=== PATIENT | female | born 1975 | race Caucasian/White ===

== ENCOUNTER 2022-08-23 13:56 | Emergency (ER) | payer MEDICARE, OTHER ==
[~2022-08-23] VITALS: Ht 167.6 cm; Wt 107.0 kg
[2022-08-23 14:40] LABS: BASOPHILS PERCENT AUTO 1 % (0-2); EOSINOPHILS ABSOLUTE AUTO 0.11 K/mm3 (0.00-0.68); EOSINOPHILS PERCENT AUTO 1 % (0-6); Hematocrit 47.2 % (33.0-51.0); Hemoglobin 15.6 g/dL (11.5-16.0); IMMATURE GRAN ABSOLUTE AUTO 0.08 K/mm3 (0.00-0.10); IMMATURE GRAN PERCENT AUTO 1 % (0-1); LYMPHOCYTES ABSOLUTE AUTO 2.62 K/mm3 (0.84-5.20); LYMPHOCYTES PERCENT AUTO 18 % (21-46); MONOCYTES ABSOLUTE AUTO 0.83 K/mm3 (0.16-1.47); MONOCYTES PERCENT AUTO 6 % (4-13); Mean Corpuscular HGB 30.4 pg (26.0-34.0); Mean Corpuscular HGB Conc 33.1 g/dL (31.5-36.5); Mean Corpuscular Volume 92 fL (80-100); NEUTROPHILS ABSOLUTE AUTO 10.94 K/mm3 (1.96-9.15); NEUTROPHILS PERCENT AUTO 75 % (41-73); Platelet Count 400 K/mm3 (150-400); RDW Coefficient Variation 13.2 % (11.7-14.2); RDW Standard Deviation 44.8 fL (35.1-46.3); Red Blood Cell Count 5.14 M/mm3 (3.80-5.20); White Blood Cell Count 14.68 K/mm3 (4.00-11.30)
[2022-08-23 15:01] LABS: Albumin/Globulin Ratio 1.2 (0.8-1.8); Bilirubin, Total 0.8 mg/dL (0.1-1.0); Bun/Creatinine Ratio 8.9 (12.0-20.0); Calcium, Blood 9.6 mg/dL (8.5-10.1); Creatinine, Blood 0.67 mg/dL (0.40-1.00); Globulin, Blood 3.2 g/dL (2.2-4.0); Potassium, Blood 3.3 mmol/L (3.5-5.5); Total Protein, Blood 7.2 g/dL (6.4-8.2)
== END 2022-08-23 19:44 | disposition home or self-care (01) ==
LOC: ER 13:56
PROVIDERS: Emergency Medicine
DX: G43.909 Migraine, unspecified, not intractable, without status migrainosus (principal); Z88.2 Allergy status to sulfonamides; Z91.048 Other nonmedicinal substance allergy status; Z88.0 Allergy status to penicillin; Z91.041 Radiographic dye allergy status
CPT/HCPCS: 36415; 80053; 85025; 96374; 96375; 99284-25; A9270; J0780; J1100; J1885; J2405; J3475

== ENCOUNTER 2022-12-25 00:22 | Day surgery (SDC) | payer MEDICARE, OTHER ==
[~2022-12-25 00:22] MED LIST: FLUO10 PO; HYDCOR2.5C PR; INDERAL XL120 M1 PO; MELO7.5 PO; PREG100 PO; Triamcinolone A15 GM TOP
== END 2022-12-25 14:58 | disposition home or self-care (01) ==
LOC: ATC 00:22
DX: L40.0 Psoriasis vulgaris (principal)
CPT/HCPCS: J3245

== ENCOUNTER → 2023-01-10 | Outpatient (CLI) | payer MEDICARE, OTHER ==
[2023-01-10 19:46] LABS: BASOPHILS PERCENT AUTO 1 % (0-2); EOSINOPHILS ABSOLUTE AUTO 0.42 K/mm3 (0.00-0.68); EOSINOPHILS PERCENT AUTO 3 % (0-6); Hematocrit 43.7 % (33.0-51.0); Hemoglobin 14.3 g/dL (11.5-16.0); IMMATURE GRAN ABSOLUTE AUTO 0.09 K/mm3 (0.00-0.10); IMMATURE GRAN PERCENT AUTO 1 % (0-1); LYMPHOCYTES ABSOLUTE AUTO 3.11 K/mm3 (0.84-5.20); LYMPHOCYTES PERCENT AUTO 23 % (21-46); MONOCYTES ABSOLUTE AUTO 1.03 K/mm3 (0.16-1.47); MONOCYTES PERCENT AUTO 8 % (4-13); Mean Corpuscular HGB 31.6 pg (26.0-34.0); Mean Corpuscular HGB Conc 32.7 g/dL (31.5-36.5); Mean Corpuscular Volume 97 fL (80-100); Mean Platelet Volume 10.5 fL (9.1-12.4); NEUTROPHILS ABSOLUTE AUTO 8.55 K/mm3 (1.96-9.15); NEUTROPHILS PERCENT AUTO 64 % (41-73); Platelet Count 328 K/mm3 (150-400); RDW Coefficient Variation 14.6 % (11.7-14.2); RDW Standard Deviation 51.1 fL (35.1-46.3); Red Blood Cell Count 4.52 M/mm3 (3.80-5.20)
[2023-01-10 20:13] LABS: Alanine Aminotransfer (ALT/SGP 32 U/L (12-78); Albumin, Blood 3.7 g/dL (3.4-5.0); Albumin/Globulin Ratio 1.2 (0.8-1.8); Alk Phos 89 U/L (50-136); Anion Gap 3 mmol/L (6-16); Aspartate Aminotrans (AST/SGOT 20 U/L (12-37); Bilirubin, Total 0.4 mg/dL (0.1-1.0); Blood Urea Nitrogen 25 mg/dL (8-24); Bun/Creatinine Ratio 40.9 (12.0-20.0); CO2, Blood 27 mmol/L (21-32); Calcium, Blood 8.8 mg/dL (8.5-10.1); Chloride, Blood 110 mmol/L (98-108); Cholesterol 198 mg/dL (50-200); Creatinine, Blood 0.61 mg/dL (0.40-1.00); Globulin, Blood 3.2 g/dL (2.2-4.0); Glomerular Filtration Rate 111 (60-); Glucose, Blood 97 mg/dL (70-99); HDL Cholesterol 66 mg/dL (>39); LDL/HDL RATIO 1.2; Low Density Lipoprotein Chol 80 mg/dL (0-110); Sodium, Blood 140 mmol/L (136-145); Total Protein, Blood 6.9 g/dL (6.4-8.2); Triglycerides 262 mg/dL (30-160); Very Low Density Lipoprot Chol 52 mg/dL (6-32)
== END | disposition home or self-care (01) ==
LOC: LAB SHORT 18:41
PROVIDERS: Family Medicine
DX: F43.10 Post-traumatic stress disorder, unspecified (principal); E78.5 Hyperlipidemia, unspecified; R06.09 Other forms of dyspnea
CPT/HCPCS: 80053; 80061; 83880; 84443; 85025

== ENCOUNTER 2023-04-27 20:27 | Emergency (ER) | payer MEDICARE, OTHER ==
[~2023-04-27] VITALS: Ht 167.6 cm; Wt 99.8 kg
[2023-04-27 20:33] VITALS: BP 134/94
[2023-04-27] MEDS ORDERED: ALDACTONE100 MG PO (20:42)
[2023-04-27] MEDS ORDERED: ONDA4ODT MM (20:43)
== END 2023-04-27 21:00 | disposition home or self-care (01) ==
LOC: ER 20:27
DX: J02.9 Acute pharyngitis, unspecified (principal); Z88.8 Allergy status to other drugs, medicaments and biological substances; Z88.2 Allergy status to sulfonamides; Z91.09 Other allergy status, other than to drugs and biological substances; Z88.0 Allergy status to penicillin; Z79.899 Other long term (current) drug therapy; Z96.653 Presence of artificial knee joint, bilateral
CPT/HCPCS: 87430; J1100

== ENCOUNTER 2023-05-28 08:47 | Emergency (ER) | payer MEDICARE, OTHER ==
[~2023-05-28] VITALS: Ht 167.6 cm; Wt 101.2 kg
[~2023-05-28 08:47] MED LIST changes: +ALDACTONE100 MG PO; +ONDA4ODT MM
[2023-05-28] MEDS ORDERED: PRAZOSIN HCL1 M2 PO (09:00)
[2023-05-28] MEDS ORDERED: TIZANIDINE HCL213 PO (09:00)
[2023-05-28 09:30] VITALS: BP 123/107
== END 2023-05-28 09:39 | disposition home or self-care (01) ==
LOC: ER 08:47
DX: S90.122A Contusion of left lesser toe(s) without damage to nail, initial encounter (principal); F17.290 Nicotine dependence, other tobacco product, uncomplicated; Z88.8 Allergy status to other drugs, medicaments and biological substances; Z88.0 Allergy status to penicillin; Z91.041 Radiographic dye allergy status; Z88.2 Allergy status to sulfonamides; Z91.048 Other nonmedicinal substance allergy status; Z88.1 Allergy status to other antibiotic agents; W22.8XXA Striking against or struck by other objects, initial encounter
CPT/HCPCS: 73630; 96372; 99283-25; A9270; J1885

== ENCOUNTER 2023-07-08 10:15 | Emergency (ER) | payer MEDICARE, OTHER ==
[~2023-07-08] VITALS: Ht 167.6 cm; Wt 101.2 kg
[~2023-07-08 10:15] MED LIST changes: +PRAZOSIN HCL1 M2 PO; +TIZANIDINE HCL213 PO
[2023-07-08 10:27] VITALS: BP 146/98
[2023-07-08] MEDS ORDERED: MELO7.5 PO (10:31)
[2023-07-08] MEDS ORDERED: HYDR1TAB94 PO (13:09)
== END 2023-07-08 13:19 | disposition home or self-care (01) ==
LOC: ER 10:15
DX: M16.11 Unilateral primary osteoarthritis, right hip (principal); F17.290 Nicotine dependence, other tobacco product, uncomplicated; Z79.899 Other long term (current) drug therapy
CPT/HCPCS: 73502; 96372; 99283-25; A9270; J1885

== ENCOUNTER 2023-11-04 11:55 | Emergency (ER) | payer MEDICARE, OTHER ==
[~2023-11-04] VITALS: Ht 167.6 cm; Wt 96.2 kg
[~2023-11-04 11:55] MED LIST changes: +HYDR1TAB94 PO
[2023-11-04 12:39] VITALS: BP 144/114
[2023-11-04] MEDS ORDERED: MOXIFLOXACIN LEFTEYE (13:45)
[2023-11-04] MEDS ORDERED: ERYT1OIN LEFTEYE (17:03)
[2023-11-11] MEDS ORDERED: ONDA4 PO (14:00)
== END 2023-11-04 13:53 | disposition home or self-care (01) ==
LOC: ER 11:55
DX: S05.02XA Injury of conjunctiva and corneal abrasion without foreign body, left eye, initial encounter (principal); F17.290 Nicotine dependence, other tobacco product, uncomplicated; Z88.0 Allergy status to penicillin; Z88.1 Allergy status to other antibiotic agents; Z88.2 Allergy status to sulfonamides; Z88.8 Allergy status to other drugs, medicaments and biological substances; Z91.041 Radiographic dye allergy status; Z91.048 Other nonmedicinal substance allergy status; Z79.899 Other long term (current) drug therapy; X58.XXXA Exposure to other specified factors, initial encounter
CPT/HCPCS: 99283; A9270

== ENCOUNTER 2023-11-11 15:28 | Emergency (ER) | payer OTHER, MEDICARE ==
[~2023-11-11] VITALS: Ht 167.6 cm; Wt 96.2 kg
[~2023-11-11 15:28] MED LIST changes: +ERYT1OIN LEFTEYE; +MOXIFLOXACIN LEFTEYE; +ONDA4 PO
[2023-11-11 15:43] VITALS: BP 162/110
[2023-11-11] MEDS ORDERED: HYDROCODONE-AC1 EAC7 PO (16:08)
[2023-11-11] MEDS ORDERED: TOPI25 PO (16:08)
[2023-11-11] MEDS ORDERED: ALDACTONE100 MG PO (16:09)
[2023-11-11] MEDS ORDERED: MELO7.5 PO (16:09)
[2023-11-11] MEDS ORDERED: PROZAC2010 PO (16:10)
[2023-11-11] MEDS ORDERED: MOXIOPS LEFTEYE (16:35)
== END 2023-11-11 16:42 | disposition home or self-care (01) ==
LOC: ER 15:28
DX: S05.02XA Injury of conjunctiva and corneal abrasion without foreign body, left eye, initial encounter (principal); W54.8XXA Other contact with dog, initial encounter; G43.909 Migraine, unspecified, not intractable, without status migrainosus; F17.290 Nicotine dependence, other tobacco product, uncomplicated
CPT/HCPCS: 99282; A9270

== ENCOUNTER 2023-11-25 06:10 | Day surgery (SDC) | payer MEDICARE, OTHER ==
[2023-11-25] VITALS (11 sets, daily range): BP systolic 98–120; BP diastolic 58–86
[~2023-11-25] VITALS: Ht 167.6 cm; Wt 100.1 kg
[~2023-11-25 06:10] MED LIST changes: +HYDROCODONE-AC1 EAC7 PO; +MOXIOPS LEFTEYE; +PROZAC2010 PO; +TOPI25 PO
[2023-11-25] MEDS ORDERED: TIZANIDINE HCL213 PO (07:34)
[2023-11-25] MEDS ORDERED: Ventolin/Prove6.7 GM INH (07:35)
--- NOTE | 2023-11-25 07:36 | NUR ---
History, Chart, Medications and Allergies reviewed before start of procedure. Patient up to Ambulate independently with cane. Patient confirms NPO status and agrees with scheduled surgery. Pre-Op teaching done. Pt verbalizes understanding. Patient reports completing Chlorhexadine shower X2 prior to admission to hospital.Surgical site prepped with 2% Chlorhexidine cloth wipe. Lungs clear T/O to Auscultation. Patient States Post-Procedure ride home has been arranged.
--- NOTE | 2023-11-25 08:18 | NUR ---
11/25/23 0818 Cherie Harris SPINAL NERVE BLOCK COMPLETED BY DR. GLASS UPON ENTRY TO OR. PT EXPRESSED SOME FEELINGS OF DISCOMFORT BUT WAS ABLE TO TOLERATE THE SPINAL.
--- NOTE | 2023-11-25 15:01 | NUR ---
AT APROX 1430 RN WAS TOLD PT IS WISHING TO LEAVE AMA DUE TO THERAPY NOT BEING IN TO WORK WITH HER YET. PT STATES SHE DID NOT EXPECT TO BE HERE THIS LONG AFTER SURGERY AND APPEARS VERY AGGITATED. THIS RN DISCUSSED AT LENGTH THE PTS DISCHARGE CRITERIA INCLUDING CLEARING PT, PAIN MANAGED W/PO MEDICATION, VOIDING, AND TOLERATING PO WITH NO N/V. PT HAD REPORTED NAUSEA PREVIOUSLY, THIS RN BROUGHT REGLAN AND PT REFUSED SHE STATED IT WAS IMPROVED. PT STATES SHE HAS APROX 24 STAIRS TO HER APPARTMENT AND IS WONDERING HOW SHE WILL GET UP THOSE. AGAIN EDUCATED PT ON THERAPY WORKING WITH PT ON THESE SPECIFIC THINGS. ASKED PT IF SHE HAD ATTENDED THE ORTHO CLASS, SHE STATES SHE DID NOT HER SURGERY WAS SUPPOSED TO BE IN AUGUST BUT THEY CANCLED DUE TO HER CONTINUED VAPING. PT IN ROOM AT APROX 1500 TO WORK WITH PT.
[2023-11-25] MEDS ORDERED: ASPI81CH PO (15:48)
[2023-11-25] MEDS ORDERED: ONDA4 PO (15:50)
--- NOTE | 2023-11-25 16:58 | NUR ---
DISCHARGE PT DISCHARGED HOME FROM UNIT AT APROX 1630. PT GIVEN WRITTEN AND VERBAL DC INSTRUCTIONS AND VERBALIZED UNDERSTANDING OF THESE INSTRUCTIONS. PT DID ASK WHEN SHE WOULD BE ABLE TO HAVE SEX AGAIN, RN EDUCATED THAT SHE WOULD NEED TO BE CLEARED BY MD FOR SAFETY REASONS. IV REMOVED. WC TO CAR. PT WALKER WITH PT. WRITTEN RX'S GIVEN TO PT, COPY IN CHART.
== END 2023-11-25 16:38 | disposition home or self-care (01) ==
LOC: ORSCMMR 06:10 → ORD 07:30 → ORSCMMR 07:30 → SURS 10:11 → ORSCMMR 10:12 → SURS 16:38 → ORSCMMR 16:38
PROVIDERS: Orthopaedic Surgery
PROC: 0SR90JZ Replacement of Right Hip Joint with Synthetic Substitute, Open Approach (ICD-10-PCS; principal; 2023-11-25 07:30)
DX: M16.11 Unilateral primary osteoarthritis, right hip (principal); J45.909 Unspecified asthma, uncomplicated; E11.9 Type 2 diabetes mellitus without complications; Z87.891 Personal history of nicotine dependence; Z86.16 Personal history of COVID-19; Z79.899 Other long term (current) drug therapy
CPT/HCPCS: 72170; 97110; 97116; 97162; A9270; C1776; J0171; J0690; J0735; J1100; J1885; J2250; J2405; J2704; J2795; J3010; J7120

== ENCOUNTER 2023-12-14 07:06 | Emergency (ER) | payer MEDICARE, OTHER ==
[~2023-12-14] VITALS: Ht 167.6 cm; Wt 99.8 kg
[~2023-12-14 07:06] MED LIST changes: +ASPI81CH PO; +Ventolin/Prove6.7 GM INH
[2023-12-14] MEDS ORDERED: OXYCODONE-ACET1 EAC3 PO (08:01)
[2023-12-14] MEDS ORDERED: PREGABALIN100 MG PO (08:01)
[2023-12-14 08:45] VITALS: BP 112/82
== END 2023-12-14 09:31 | disposition home or self-care (01) ==
LOC: ER 07:06
DX: M96.840 Postprocedural hematoma of a musculoskeletal structure following a musculoskeletal system procedure (principal); Z96.641 Presence of right artificial hip joint; Z96.653 Presence of artificial knee joint, bilateral; G43.909 Migraine, unspecified, not intractable, without status migrainosus; Z79.82 Long term (current) use of aspirin; Z79.1 Long term (current) use of non-steroidal anti-inflammatories (NSAID); Z79.899 Other long term (current) drug therapy; Z88.0 Allergy status to penicillin; Z88.2 Allergy status to sulfonamides; Z88.1 Allergy status to other antibiotic agents; Z88.8 Allergy status to other drugs, medicaments and biological substances; Z91.041 Radiographic dye allergy status
CPT/HCPCS: 12001; 99283-25

== ENCOUNTER 2023-12-17 | Inpatient (IN) | payer MEDICARE, OTHER ==
[~2023-12-17] VITALS: Ht 167.6 cm; Wt 102.0 kg
[~2023-12-17] MED LIST changes: +OXYCODONE-ACET1 EAC3 PO; +PREGABALIN100 MG PO
[2023-12-18] VITALS (15 sets, daily range): BP systolic 80–142; BP diastolic 64–97
[2023-12-18] MEDS ORDERED: OxyCODONE 5 mg/Acetamin 325 mg TABLET PO PRN (01:10)
[2023-12-18] MEDS ORDERED: Lactated Ringer's 1,000 ML IV SCH ×3 (01:10→12:45)
--- NOTE | 2023-12-18 04:46 | NUR ---
Admit Note/Shift Summary Elvia Kovacs was a direct admit to room 305. She prefers to be called Kalyan. She was admitted due to a large hematoma on her right outer hip at the site of her hip surgery which was done on 11/25/23. Her dressing was saturated on arrival. Dressing was changed and remains dry and intact. She is alert and oriented. Respirations regular and unlabored. Lung sounds clear. She is NPO due to the possibility of surgery in the am. Kalyan uses a cane to ambulate and is able to get around okay in her room. I instructed her to call for assistance before getting up and waiting on someone to get there. She verbalized understanding. She has an IV in her left hand with Lactated Ringers infusing per pump at 100 ml/hr. Call light in reach. Bed in low postion.
--- NOTE | 2023-12-18 08:20 | NUR ---
RN NOTE SPOKE WITH RN IN DAY SURGERY. NEW LR TKO ORDER IS IN PLACE FOR OR ONLY, NOT TO CHANGE RATE OF CURRENT IVF PER DAY SURGERY RN.
[2023-12-18] MEDS ORDERED: Ondansetron 4 MG TAB PO PRN (08:25)
[2023-12-18] MEDS ORDERED: Albuterol HFA200 ACT/6.7 GM INH INH PRN (08:40)
[2023-12-18] MEDS ORDERED: Pregabalin 50 MG Capsule PO SCH ×2 (09:00)
[2023-12-18] MEDS ORDERED: CefTRIAXone Sodium 1,000 MG in NS 50 ML IV SCH (09:00)
[2023-12-18] MEDS ORDERED: TiZANidine HCl 4 MG Tab PO SCH (09:00)
[2023-12-18] MEDS ORDERED: FLUoxetine HCL 20 MG CAP PO SCH (09:00)
--- NOTE | 2023-12-18 12:13 | NUR ---
TO OPERATING ROOM AT 1215HRS
[2023-12-18] MEDS ORDERED: Albuterol 2.5 MG/3 ML VIAL INH SCH (13:05)
[2023-12-18] MEDS ORDERED: Albuterol 2.5 MG/3 ML VIAL ONE (13:06)
[2023-12-18] MEDS ORDERED: Tranexamic Acid 100 ML IV SCH (13:10)
[2023-12-18 13:33] LABS: BASOPHILS ABSOLUTE AUTO 0.12 K/mm3 (0.00-0.23); BASOPHILS PERCENT AUTO 1 % (0-2); EOSINOPHILS ABSOLUTE AUTO 0.36 K/mm3 (0.00-0.68); EOSINOPHILS PERCENT AUTO 2 % (0-6); Hematocrit 35.9 % (33.0-51.0); Hemoglobin 11.5 g/dL (11.5-16.0); IMMATURE GRAN PERCENT AUTO 1 % (0-1); LYMPHOCYTES ABSOLUTE AUTO 2.22 K/mm3 (0.84-5.20); LYMPHOCYTES PERCENT AUTO 12 % (21-46); MONOCYTES ABSOLUTE AUTO 1.55 K/mm3 (0.16-1.47); MONOCYTES PERCENT AUTO 9 % (4-13); Mean Corpuscular HGB 32.7 pg (26.0-34.0); Mean Corpuscular Volume 102 fL (80-100); Mean Platelet Volume 9.5 fL (9.1-12.4); NEUTROPHILS ABSOLUTE AUTO 13.62 K/mm3 (1.96-9.15); NEUTROPHILS PERCENT AUTO 75 % (41-73); Platelet Count 306 K/mm3 (150-400); RDW Coefficient Variation 14.2 % (11.7-14.2); RDW Standard Deviation 52.6 fL (35.1-46.3); Red Blood Cell Count 3.52 M/mm3 (3.80-5.20); White Blood Cell Count 18.07 K/mm3 (4.00-11.30)
[2023-12-18] MEDS ORDERED: propofoL 20 ML IV ONE (13:37)
[2023-12-18] MEDS ORDERED: FentaNYL Citrate 50 MCG/ML 2 ML Injection ONE (13:37)
[2023-12-18] MEDS ORDERED: Bupivacaine 0.5% HCl 5 MG/ML 30MLVIAL ONE (13:55)
[2023-12-18 13:57] LABS: Calcium, Blood 8.7 mg/dL (8.5-10.1); Creatinine, Blood 0.7 mg/dL (0.40-1.00); Potassium, Blood 4.1 mmol/L (3.5-5.5)
[2023-12-18] MEDS ORDERED: FentaNYL Citrate 50 MCG/ML 5 ML Injection ONE (14:03)
[2023-12-18] MEDS ORDERED: Ondansetron HCl 2 MG / ML 2ML Vial ONE (14:28)
[2023-12-18] MEDS ORDERED: Atropine Sulfate 0.1 MG/ML 10ML SYR IV PRN (14:45)
[2023-12-18] MEDS ORDERED: ePHEDrine Sulfate 50 MG/ML 1ML Injection IV PRN (14:45)
[2023-12-18] MEDS ORDERED: Albuterol 2.5 MG/3 ML VIAL INH PRN (14:45)
[2023-12-18] MEDS ORDERED: Ketorolac Tromethamine 30mg Vial ONE (14:46)
[2023-12-18] MEDS ORDERED: Ondansetron HCl 2 MG / ML 2ML Vial IV PRN (14:50)
[2023-12-18] MEDS ORDERED: Labetalol HCL 5 MG/ML 4ML Injection (Single Dose) IV PRN (14:50)
[2023-12-18] MEDS ORDERED: FentaNYL Citrate 50 MCG/ML 2 ML Injection IV PRN ×2 (14:50→14:55)
[2023-12-18] MEDS ORDERED: Metoclopramide HCl 5MG / ML 2ML Vial IV PRN (14:50)
[2023-12-18] MEDS ORDERED: LORazepam 2 MG/ML 1ML Injection IV PRN (14:50)
[2023-12-18] MEDS ORDERED: HYDROmorphone HCl/Pf 1MG SYR IV PRN ×2 (14:55→16:20)
[2023-12-18] MEDS ORDERED: HYDROmorphone HCl/Pf 1MG SYR ONE (15:28)
--- NOTE | 2023-12-18 16:28 | NUR ---
SHIFT SUMMARY MS MARRERO WENT TO THE OR AT 1215 AND RETURNED TO MEDICAL UNIT AT 1602HRS. SHE IS AWAKE. DRESSING TO R HIP IS C,D,I WITH MODERATE AMOUNT OF SWELLING AROUND THE DRESSING. SCDS ON. PAIN CONTROLLED AT THE MOMENT. DR BAUTISTA CALLED - TELEPHONE ORDER TO DISCONTINUE IVF, REGULAR DIET, DILAUDID 1-2MG IV Q4HRS PRN, AND FOR OXYGEN 3L AT NIGHT (HER HOME ROUTINE). READ BACK DONE AND ORDERS ENTERED INTO [employer]. PRE-OP MS MARRERO WAS ABLE TO WALK TO THE BATHROOM WITH HER CANE AND STAND-BY ASSIST. BED LOW, CALL LIGHT IN REACH.
[2023-12-18] MEDS ORDERED: NS 250 ML IV PRN (16:50)
[2023-12-18] MEDS ORDERED: Lactobacil 2-S.Thermo-Bifido 1 1 Cap PO SCH (21:00)
[2023-12-19 00:06] VITALS: BP 109/86
[2023-12-19 04:22] VITALS: BP 116/89
--- NOTE | 2023-12-19 04:49 | NUR ---
SHIFT SUMMARY Patient is alert and oriented x 4. Respirations regular and unlabored. She wears oyxgen per nasal cannula at 3 L during the night. Skin warm and dry. Dressing to right hip is clean, dry, and intact. Patient has required several doses of IV pain medications this shift due to pain in her right hip that she rates at a 10. She did sleep some. She has a purwick with yellow urine noted in cannister. Call light is in reach and bed in low position.
[2023-12-19 07:50] VITALS: BP 98/78
[2023-12-19] MEDS ORDERED: Ondansetron 4 MG TAB PO PRN (12:30)
--- NOTE | 2023-12-19 12:34 | NUR ---
REPORT GIVEN TO FILIPPO LAUGHLIN RN WHO ASSUMES CARE AT THIS TIME
[2023-12-19] MEDS ORDERED: Magnesium Oxide 400 MG Tab PO ONE (14:15)
--- NOTE | 2023-12-19 17:19 | NUR ---
DAYSHIFT SUMMARY Assumed care at 1200, handoff report given by Joi ALSTON. Patient alert & oriented x4. Reporting severe pain in the right hip, dressing covering incision. IV Diluadid given for pain, PRN effective. Vitals stable. Will continue plan of care.
[2023-12-19 20:12] VITALS: BP 121/98
[2023-12-19] MEDS ORDERED: DiphenhydrAMINE HCL/Zinc Acet Cream TOP PRN (22:55)
[2023-12-20 03:06] VITALS: BP 99/66
[2023-12-20 05:59] LABS: Hematocrit 31.2 % (33.0-51.0); Hemoglobin 9.9 g/dL (11.5-16.0); Mean Corpuscular HGB 32.4 pg (26.0-34.0); Mean Corpuscular HGB Conc 31.7 g/dL (31.5-36.5); Mean Corpuscular Volume 102 fL (80-100); Mean Platelet Volume 10.1 fL (9.1-12.4); Platelet Count 322 K/mm3 (150-400); RDW Coefficient Variation 14.2 % (11.7-14.2); RDW Standard Deviation 52.7 fL (35.1-46.3); Red Blood Cell Count 3.06 M/mm3 (3.80-5.20); White Blood Cell Count 12.24 K/mm3 (4.00-11.30)
[2023-12-20 06:44] LABS: Bun/Creatinine Ratio 19.2 (12.0-20.0); Calcium, Blood 8.8 mg/dL (8.5-10.1); Creatinine, Blood 0.68 mg/dL (0.40-1.00); Potassium, Blood 3.8 mmol/L (3.5-5.5)
--- NOTE | 2023-12-20 06:48 | NUR ---
SHIFT SUMMARY PT A&OX4 AND PLEASANT. PT CALLS FREQUANTLY. PT C/O PAIN T/O NIGHT AND MEDICATED PER EMAR. DRESSING ON RIGHT HIP HAD HEAVY SEROSANGIOUS DRAINAGE WHEN TURNED TOWARED RIGHT SIDE AND DRESSING WAS CHANGED 3 TIMES. VSS. PT CONITNUING IV ABX. PT ONLY SLEPT FOR SHORT INTERVALS. BED IN LOWEST POSITION AND CALL LIGHT IN REACH.
[2023-12-20 07:59] VITALS: BP 117/75
[2023-12-20] MEDS ORDERED: Magnesium Oxide 400 MG Tab PO SCH (09:00)
[2023-12-20 14:26] VITALS: BP 111/66
[2023-12-20] MEDS ORDERED: Calcium Carbonate 500 MG Tab Chew PO PRN (15:40)
[2023-12-20] MEDS ORDERED: CeFAZolin Sodium 2,000 MG in NS 50 ML IV SCH (17:00)
--- NOTE | 2023-12-20 17:34 | NUR ---
PT HAS BEEN AOX4 AND COOPERATIVE OF CARE. PT IS ABLE TO STAND AT BEDSIDE AND USE URINAL. PT HAS HEPRIN STILL RUNNING. TREATED FOR PAIN AND NAUSEA PER EMAR. CALL LIGHT WITHIN REACH WILL CONTINUE TO MONITOR.
[2023-12-20 19:50] VITALS: BP 111/95
[2023-12-20] MEDS ORDERED: Melatonin 5 MG Tablet PO ONE (22:50)
[2023-12-21] MEDS ORDERED: NS 50 ML IV ONE (00:19)
[2023-12-21] MEDS ORDERED: LORazepam 0.5 MG Tab PO ONE (02:55)
[2023-12-21 03:44] VITALS: BP 108/73
--- NOTE | 2023-12-21 05:03 | NUR ---
SHIFT SUMMARY PT A&OX4. NO ACUTE CHANGES. DRESSING ON RIGHT HIP CHANGED TWICE. MODERATE AMOUNT OF SEROSANGUINEOUS NOTED ON GUAZE. PT DID NOT SLEEP MOST OF NIGHT. ONE TIME DOSE OF MELATONIN AND THEN ATIVAN GIVE PER MD ORDER TO AID WITH SLEEP WITH LITTLE EFFECT. CONTINUING IV ABX. VSS. BED IN LOWEST POSITION AND CALL LIGHT IN REACH.
[2023-12-21 05:21] LABS: Hemoglobin 10.6 g/dL (11.5-16.0); Mean Corpuscular HGB 32.5 pg (26.0-34.0); Mean Corpuscular HGB Conc 32.1 g/dL (31.5-36.5); Mean Corpuscular Volume 101 fL (80-100); Platelet Count 361 K/mm3 (150-400); RDW Standard Deviation 52.5 fL (35.1-46.3); Red Blood Cell Count 3.26 M/mm3 (3.80-5.20); White Blood Cell Count 10.62 K/mm3 (4.00-11.30)
[2023-12-21 07:30] VITALS: BP 103/73
[2023-12-21 15:55] VITALS: BP 102/70
--- NOTE | 2023-12-21 18:28 | NUR ---
PT AOX4 AND COOPERATIVE OF CARE. PT DOING WELL TREATED FOR R HIP PAIN PER EMAR. PT HAD BANDAGE CHANGED AND HEAVY AMOUNT OF CLEAR FLUID DRAINED FROM INCISION SITE SOAKIING THREE CONTAINERS OF 4" SQUARE GAUZE PACKETS. BANDAGE REPLACE. NO DISTRESS NOTED AND CALL LIGHT WITHIN REACH WILL CONTNUE TO MONITOR.
[2023-12-21 22:38] VITALS: BP 113/69
[2023-12-22] VITALS (19 sets, daily range): BP systolic 96–162; BP diastolic 58–123
--- NOTE | 2023-12-22 06:31 | NUR ---
SHIFT SUMMARY: PT IS ADMITTED FOR ACTIVE BLEEDING AND HEMATOMA TO RIGHT HIP AND IS A FULL CODE. IS ALERT AND ABLE TO MAKE NEEDS KNOWN. ADLs HAVE BEEN 1P STANDBY OR INDEPENDENT DEPENDENDING OUT HOW SHE IS FEELING. DRESSING TO RIGHT HIP HAS BEEN CDI THROUGH SHIFT. HAS BEEN GIVEN PRN PAIN MANAGEMENT X2 THIS SHIFT. IV TO RIGHT HAND IS PATENT WITH DRESSING THAT IS CDI. NPO STARTING ABOUT MIDNIGHT PENDING POSSIBLE SURGERY FOR HIP HARDWARE REPLACEMENT. THIS NURSE DID OVER HERE PT AND [employer]ARD[employer] FLOORING SPECIALIST TALKING ABOUT A POSSIBLE RASH TO LEFT BUTTOX. WHEN THIS NURSE ASKED ABOUT ASSESSING AREA PT DECLINED STATING THAT THEY THOUGHT IT MIGHT CAUSE AN ISSUE WITH HER CURRENT RELATIONSHIP TO HAVE A MALE NURSE LOOK AT THE AREA. WHEN ALTERNATIVES WERE OFFERED SUCH HAVING A FEMALE PRESENT OR A FEMALE NURSE SUCH THE CHARGE NURSE ADDRESS THE RASH. PT DECLINED STATING THAT IT WAS NOT THAT BIG OF A DEAL. THIS NURSE DID NOT PRESS FURTHER TO ACCESS AND STATED IF SHE CHANGED HER MIND AND WANTED SOMEONE TO LOOK AT IT ARRANGEMENTS COULD BE MADE TO HAVE IT DONE.
[2023-12-22] MEDS ORDERED: Vancomycin HCl 1000 MG ADDvantage ONE ×2 (12:23→16:59)
[2023-12-22] MEDS ORDERED: Lactated Ringer's 1,000 ML IV SCH (13:40)
[2023-12-22] MEDS ORDERED: Rocuronium Bromide 10 MG/ML 5ML Injection IV ONE ×2 (13:44→16:01)
[2023-12-22] MEDS ORDERED: propofoL 20 ML IV ONE (13:44)
[2023-12-22] MEDS ORDERED: FentaNYL Citrate 50 MCG/ML 2 ML Injection ONE ×3 (13:45→17:15)
[2023-12-22] MEDS ORDERED: TRANEXAMIC ACID IV SCH (14:05)
[2023-12-22] MEDS ORDERED: NS IV SCH (14:05)
[2023-12-22] MEDS ORDERED: Sugammadex Sodium 200 MG/2ML SDV (100 MG/ML) ONE ×2 (14:10→16:18)
--- NOTE | 2023-12-22 14:51 | NUR ---
PATIENT TAKEN TO OR FOR R HIP REVISION. WILL GO TO ROOM 209 ON SURGICAL FLOOR POST OP. REPORT CALLED TO ALECIA QUINTERO. PATIENT BELONGINGS BROUGHT DOWN TO 209.
[2023-12-22] MEDS ORDERED: Ondansetron HCl 2 MG / ML 2ML Vial IV ONE (15:10)
[2023-12-22] MEDS ORDERED: Ropivacaine 0.5% HCl/Pf 67.75 MG,EPINEPHrine HCL 0.25 MG,Ketorolac Tromethamine 15 MG,C... INFIL SCH (15:10)
[2023-12-22] MEDS ORDERED: Ondansetron HCl 2 MG / ML 2ML Vial ONE ×3 (15:11→17:29)
[2023-12-22] MEDS ORDERED: Ipratropium/Albuterol SulF 2.5-0.5MG/3 ML Amp INH ONE (15:15)
[2023-12-22] MEDS ORDERED: Midazolam HCl 1MG / ML 2ML Vial ONE (15:17)
[2023-12-22] MEDS ORDERED: Ipratropium/Albuterol SulF 2.5-0.5MG/3 ML Amp ONE (15:19)
[2023-12-22] MEDS ORDERED: Midazolam HCl 1MG / ML 2ML Vial IV ONE (15:20)
[2023-12-22] MEDS ORDERED: Phenylephrine HCl 100 MCG/ML-NS 10MLSYR (1MG/10ML) ONE (15:38)
[2023-12-22] MEDS ORDERED: Dexamethasone Sod Phos 10 MG/ML 1ML VIAL ONE (15:48)
[2023-12-22] MEDS ORDERED: HYDROmorphone HCl/Pf 1MG SYR IV PRN (16:10)
[2023-12-22] MEDS ORDERED: FentaNYL Citrate 50 MCG/ML 2 ML Injection IV PRN ×2 (16:10)
[2023-12-22] MEDS ORDERED: Ondansetron HCl 2 MG / ML 2ML Vial IV PRN (16:10)
[2023-12-22] MEDS ORDERED: HYDROmorphone HCl/Pf 1MG SYR ONE ×2 (17:25→17:55)
[2023-12-22] MEDS ORDERED: LORazepam 2 MG/ML 1ML Injection IV ONE (17:40)
[2023-12-22] MEDS ORDERED: LORazepam 2 MG/ML 1ML Injection ONE (17:40)
--- NOTE | 2023-12-22 17:45 | NUR ---
PERSONAL BELONGINGS PER PATIENT REQUEST, HER PHONE WAS LOCATED IN HER PURSE AND BROUGHT BACK TO DAY SURGERY AREA FOR HER TO USE WHILE SHE WAS WAITING TO GO INTO THE OR. WHILE LOOKING FOR HER PHONE WITH ANOTHER STAFF MEMBER IN THE ROOM, THIS RN FOUND A PRESCRIPTION BOTTLE OF PERCOCET IN HER PURSE. THIS WAS TAKEN AND PLACED IN A LOCKED DRAWER AND WILL BE RETURNED TO HER AT TIME OF DISCHARGE. NO OTHER ITEMS CONFISCATED AT THIS TIME. PT WILL BE UPDATED ON HER MEDICATIONS WHEN SHE RETURNS TO THE FLOOR.
--- NOTE | 2023-12-22 19:59 | NUR ---
TRANSFER TO SURGICAL FLOOR PT BROUGHT OUT TO ROOM 209 FROM PACU, PAINFUL AT TIME OF ARRIVAL, MEDICATED WITH IV AND PO PAIN MEDS PER EMAR WHICH HELPED IN SHORT TERM BUT SHE IS ASKING FOR MORE MEDS AT THIS TIME. POST OP VITALS STARTED, SHE IS VERY FIDGETY IN HER BED AND APPEARS TO HAVE SOME DIFFICULTY WITH GETTING INTO A COMFORTABLE POSITION. REPORT GIVEN TO CORTNEY ALSTON.
[2023-12-23 03:48] VITALS: BP 107/76
[2023-12-23 04:36] LABS: Hematocrit 24.1 % (33.0-51.0); Hemoglobin 7.6 g/dL (11.5-16.0); Mean Corpuscular HGB 32.2 pg (26.0-34.0); Mean Corpuscular HGB Conc 31.5 g/dL (31.5-36.5); Mean Corpuscular Volume 102 fL (80-100); Mean Platelet Volume 9.5 fL (9.1-12.4); Platelet Count 376 K/mm3 (150-400); RDW Coefficient Variation 13.8 % (11.7-14.2); RDW Standard Deviation 51.8 fL (35.1-46.3); Red Blood Cell Count 2.36 M/mm3 (3.80-5.20); White Blood Cell Count 12.96 K/mm3 (4.00-11.30)
--- NOTE | 2023-12-23 04:46 | NUR ---
SHIFT SUMMARY PT RESTLESS AND ANXIOUS T/O NOC. VSS. PT STATES LARGE AMOUNT OF BLOODY DRAINAGE HAS LEAKED OUT FROM HER R HIP DRESSING MULTIPLE TIMES T/O NOC. THIS RN AND THE DRAFTING SUPERVISOR HAVE NOT OBSERVED ANY DRAINAGE FROM THE INCISION. THE DRESSING HAS REMAINED CLEAN AND DRY. PT HAS BEEN PICKING AT THE DRESSING AND LIFTING UP THE TAPE TO VISUALIZE UNDERNEATH. EDUCATED TO STOP TOUCHING THE DRESSING AND THE RISK OF WORSENING INFECTION. PT REPORTS VAGINAL BLEEDING R/T TO MENOPAUSE AND HAS DECLINED THE USE OF FEMININE HYGIENE PRODUCTS TO CONTAIN THE BLOOD. PT ACTIVELY BLEEDING FROM THE VAGINA IN HER BED. CHANGING LINENS PRN. PT REPORTS THE BLOOD ON HER LINENS IS FROM THE INCISION AND NOT HER VAGINA, ALTHOUGH DRESSING REMAINS CLEAN AND DRY. 1 MG IV DILAUDID + PERCOCET FOR PAIN MANAGEMENT. IV ABX PER ORDERS. BEVERLY DIET. INDEP TO BSC TO VOID. USES THE CALL LIGHT FREQUENTLY.
[2023-12-23 06:33] LABS: Bun/Creatinine Ratio 14.5 (12.0-20.0); Calcium, Blood 8.2 mg/dL (8.5-10.1); Creatinine, Blood 0.83 mg/dL (0.40-1.00); Potassium, Blood 4.2 mmol/L (3.5-5.5)
[2023-12-23 07:38] VITALS: BP 117/70
--- NOTE | 2023-12-23 10:29 | NUR ---
DRESSING CHANGE DURING MORNING ASSESSMENT HER DRESSING WAS FOUND TO BE SATURATED AND LEAKING OUT AROUND THE ADHESIVE COMPRESSION TAPE THAT WAS SECURING IT DOWN. AFTER GATHERING SUPPLIES THE OLD DRESSING WAS CAREFULLY REMOVED TO REVEAL THE ABD/GAUZE UNDERNEATH WAS COMPLETELY SATURATED WITH SS DRAINAGE, THIS WAS REMOVED ALONG WITH THE XEROFORM. THE INCISION AREA WAS CLEANED WITH STERILE GAUZE AND WOUND CLEANSER. NEW ZEROFORM WAS PLACED OVER THE INCISION FOLLOWED BY STERILE GAUZE AND A SINGLE ABD PAD, 3 STAGGERED OPSITES WERE PLACED OVER THE TOP COMPRESSING THE ABD PAD OVER THE INCISION DUE TO THE PATIENT REPORTING ALLERGIES TO "MOST" ADHESIVES/TAPES. WHILE THE DRESSING WAS OFF IT APPEARED THAT THE MAIN SPOT THAT WAS DRAINING WAS THE TOP 2-3 CM OF THE INCISION. WILL CTM AND CHANGE/REINFORCE DRESSING PRN.
[2023-12-23 13:57] LABS: Hematocrit 24.3 % (33.0-51.0); Hemoglobin 7.6 g/dL (11.5-16.0)
[2023-12-23 14:14] LABS: Percent Saturation 14.2 % (15.0-50.0)
[2023-12-23 15:02] VITALS: BP 131/88
[2023-12-23] MEDS ORDERED: Ferrous Sulfate 325 MG Tab PO SCH (19:00)
--- NOTE | 2023-12-23 19:39 | NUR ---
SHIFT SUMMARY POD1 R HIP I&D #2, A/OX4, VSS, TOLERATING PO ABLE TO GET UP AND USE BSC INDEPENDENTLY, HAS BEEN REQUESTING A PUREWICK BUT STAFF HAS BEEN ENCOURAGING HER TO AMBULATE TO BSC AND THE BENEFITS OF EARLY MOBILITY, PAIN HAS BEEN WELL MANAGED TODAY WITH MEDS PER EMAR. DRESSING CHANGED 2X TODAY BOTH WITH XEROFORM, GAUZE, ABD PAD AND OPSITE, 2ND DRESSING CHANGE HAPPENED JUST AFTER SHIFT CHANGE WITH NOC RN ASSISTING. WHEN REMOVING HER DRESSING THAT WAS PLACED THIS AM IT DID NOT LOOK SATURATED THE DRESSING SHE HAD ON OVER NIGHT BUT THERE WAS A MODERATE AMOUNT OF SEROUS FLUID THAT STARTED RUNNING OUT OF THE TOP 2 CM OF THE INCISION SOON IT WAS REMOVED, USED APPROX 1/2 A CONTAINER OF STERIL 4X4 GAUZE ABSORBING UP THE SEROUS DRAINAGE BEFORE PLACING THE NEW DRESSING ON, OTHER THAN DRAINAGE THE INCISION SITE LOOKS GOOD WITH NO REDNESS NOTED. PT VOICED CONCERN RELATING TO HER PAIN MEDS OVER NIGHT BUT WAS EDUCATED BY ORTHO ON THE IMPORTANCE OF LOWEST DOSE WHILE GETTING ADEQUATE PAIN CONTROL, THIS LEVEL OF PAIN CONTROL WAS CONTINUED THROUGHOUT THE DAY TODAY WITH 1MG DILAUDID GIVEN AND SHE WAS REPORTING ACCEPTABLE PAIN CONTROL. NO OTHER EVENTS THIS SHIFT, PT UPDATED ON PLAN OF CARE, CALL LIGHT IN REACH. WAS REMOVED. THERE
[2023-12-23 19:56] VITALS: BP 112/76
[2023-12-23] MEDS ORDERED: Sennosides 8.6 MG Tab PO SCH (21:00)
[2023-12-23] MEDS ORDERED: Docusate Sodium 100 MG Cap PO SCH (21:00)
--- NOTE | 2023-12-24 04:02 | NUR ---
SHIFT SUMMARY NO ACUTE CHANGES. R HIP WITH SMALL AMOUNT OF LIGHT PINK DRAINAGE COMING FROM SUPERIOR PORTION OF INCISION. REINFORCED GAUZE X1. PERCOCET + IV DILAUDID FOR PAIN CONTROL. IV ABX PER ORDERS. PT INDEP TO BSC. VSS. USES CALL LIGHT FREQUENTLY AT TIMES. PT APPEARS LESS ANXIOUS THIS SHIFT THAN PREVIOUS NIGHT.
[2023-12-24 04:23] VITALS: BP 96/75
[2023-12-24 04:28] LABS: BASOPHILS ABSOLUTE AUTO 0.12 K/mm3 (0.00-0.23); BASOPHILS PERCENT AUTO 1 % (0-2); EOSINOPHILS ABSOLUTE AUTO 0.69 K/mm3 (0.00-0.68); EOSINOPHILS PERCENT AUTO 5 % (0-6); Hematocrit 25.8 % (33.0-51.0); Hemoglobin 8.1 g/dL (11.5-16.0); IMMATURE GRAN ABSOLUTE AUTO 0.34 K/mm3 (0.00-0.10); IMMATURE GRAN PERCENT AUTO 3 % (0-1); LYMPHOCYTES ABSOLUTE AUTO 3.74 K/mm3 (0.84-5.20); LYMPHOCYTES PERCENT AUTO 27 % (21-46); MONOCYTES ABSOLUTE AUTO 1.16 K/mm3 (0.16-1.47); MONOCYTES PERCENT AUTO 8 % (4-13); Mean Corpuscular HGB Conc 31.4 g/dL (31.5-36.5); Mean Corpuscular Volume 102 fL (80-100); Mean Platelet Volume 9.2 fL (9.1-12.4); NEUTROPHILS ABSOLUTE AUTO 7.68 K/mm3 (1.96-9.15); NEUTROPHILS PERCENT AUTO 56 % (41-73); Platelet Count 389 K/mm3 (150-400); RDW Coefficient Variation 14.2 % (11.7-14.2); RDW Standard Deviation 52.6 fL (35.1-46.3); Red Blood Cell Count 2.53 M/mm3 (3.80-5.20); White Blood Cell Count 13.73 K/mm3 (4.00-11.30)
[2023-12-24 04:46] LABS: Bun/Creatinine Ratio 10.9 (12.0-20.0); Calcium, Blood 8.1 mg/dL (8.5-10.1); Creatinine, Blood 0.65 mg/dL (0.40-1.00); Potassium, Blood 3.8 mmol/L (3.5-5.5)
[2023-12-24 07:21] VITALS: BP 117/79
--- NOTE | 2023-12-24 10:51 | NUR ---
MEDICATED PT PER ORDERS FOR PAIN. OFFERED PT SHOWER, PT STATED NOT READY AT THIS TIME. OFFERED ICEPACK, PT DECLINED AT THIS TIME, STATING WILL REVISIT LATER. RESTING IN BED, CALL LIGHT IN REACH.
[2023-12-24 16:04] VITALS: BP 106/68
--- NOTE | 2023-12-24 17:08 | NUR ---
SUMMARY NO ACUTE CHANGES T/O SHIFT. PT MEDICATED PER ORDERS FOR PAIN T/O DAY. CHANGED DRESSING TO R HIP THIS AFTERNOON. PT GETS UP INDEPENDENTLY TO BSC. CALL LIGHT IN REACH.
[2023-12-24 19:44] VITALS: BP 117/85
[2023-12-25] VITALS (18 sets, daily range): BP systolic 78–135; BP diastolic 52–124
--- NOTE | 2023-12-25 04:52 | NUR ---
SHIFT SUMMARY POD 3 I&D #2, POD 7 I&D #1 OF R HIP. NO ACUTE CHANGES OVERNIGHT. VS WNL FOR PT, 2L NC O2 PRN WHEN ASLEEP. NPO SINCE MIDNIGHT, ANTICIPATED SURGERY LATER TODAY. R HIP SITE c 4x4 & TEGADERM, C/D/I. TOILETS/ AMBULATES TO BEDSIDE COMMODE INDEPENDENTLY. FLUIDS/ABX INFUSING PER EMAR. PAIN MANAGED PER EMAR, PT REPORTS INTERMITTENTLY TOLERABLE. PT REPORTS INCREASED ANXIETY R/T SURGERY TODAY. CALL LIGHT WITHIN REACH, BED IN LOWEST POSITION, WILL REPORT TO DAY RN.
[2023-12-25 06:33] LABS: Hematocrit 22.7 % (33.0-51.0)
[2023-12-25 06:57] LABS: Bun/Creatinine Ratio 16.2 (12.0-20.0); Calcium, Blood 8.3 mg/dL (8.5-10.1); Creatinine, Blood 0.68 mg/dL (0.40-1.00); Potassium, Blood 3.8 mmol/L (3.5-5.5)
--- NOTE | 2023-12-25 11:01 | NUR ---
PT ASKED FOR VS TO BE TAKEN. VSS. PT STATED FEELING ANXIOUS. TALKED ABOUT RELAXATION BREATHING. PT NOW RESTING WITH EYES CLOSED, LIGHTS OFF AND DOOR CLOSED.
[2023-12-25] MEDS ORDERED: Tranexamic Acid 100 ML IV SCH (14:15)
[2023-12-25] MEDS ORDERED: Lactated Ringer's 1,000 ML IV SCH (14:15)
--- NOTE | 2023-12-25 14:26 | NUR ---
PT GOING TO PRE OP.
--- NOTE | 2023-12-25 14:53 | NUR ---
History, Chart, Medications and Allergies reviewed before start of procedure.Lungs clear T/O to Auscultation. Patient confirms NPO status and agrees with scheduled surgery. Pre-Op teaching done. Pt verbalizes understanding.
[2023-12-25] MEDS ORDERED: Dexmedetomidine HCL 200 MCG / 2 ML ONE (15:09)
[2023-12-25] MEDS ORDERED: Ropivacaine 0.5% HCl/Pf 67.75 MG,EPINEPHrine HCL 0.25 MG,Ketorolac Tromethamine 15 MG,C... INFIL SCH (15:10)
[2023-12-25] MEDS ORDERED: propofoL 60 ML IV ONE (15:13)
[2023-12-25] MEDS ORDERED: FentaNYL Citrate 50 MCG/ML 2 ML Injection ONE (15:13)
[2023-12-25] MEDS ORDERED: Midazolam HCl 1MG / ML 2ML Vial ONE (15:13)
[2023-12-25] MEDS ORDERED: ePHEDrine Sulfate 50 MG/ML 1ML Injection ONE (16:04)
[2023-12-25] MEDS ORDERED: Vancomycin HCl 1000 MG ADDvantage ONE ×2 (16:09→16:12)
[2023-12-25] MEDS ORDERED: Phenylephrine HCl 100 MCG/ML-NS 10MLSYR (1MG/10ML) ONE (16:09)
[2023-12-25] MEDS ORDERED: Atropine Sulfate 0.4 MG/1 ML Vial ONE (16:11)
[2023-12-25] MEDS ORDERED: Ondansetron HCl 2 MG / ML 2ML Vial IV PRN (16:30)
[2023-12-25] MEDS ORDERED: HYDROmorphone HCl/Pf 1MG SYR IV PRN (16:35)
[2023-12-25] MEDS ORDERED: FentaNYL Citrate 50 MCG/ML 2 ML Injection IV PRN ×3 (16:35)
[2023-12-25] MEDS ORDERED: Bupivacaine HCl 0.25% 30 ML Injection ONE (16:41)
[2023-12-25] MEDS ORDERED: Dexamethasone Sod Phos 10 MG/ML 1ML VIAL ONE (16:41)
[2023-12-25] MEDS ORDERED: propofoL 20 ML IV ONE (16:55)
--- NOTE | 2023-12-25 18:52 | NUR ---
PT ARRIVED TO UNIT FROM PACU AWAKE AND WIGGLING LEGS. LYDIA DRESSING TO R HIP CDI/COMPRESSED. HEMOVAC COMPRESSED. VSS. CALL LIGHT IN REACH. REPORT GIVEN TO ONCOMING SHIFT.
[2023-12-26 03:07] VITALS: BP 111/74
[2023-12-26 05:27] LABS: Hematocrit 22.4 % (33.0-51.0); Hemoglobin 7.2 g/dL (11.5-16.0); Mean Corpuscular HGB 32.9 pg (26.0-34.0); Mean Corpuscular HGB Conc 32.1 g/dL (31.5-36.5); Mean Corpuscular Volume 102 fL (80-100); Mean Platelet Volume 9.5 fL (9.1-12.4); Platelet Count 420 K/mm3 (150-400); RDW Coefficient Variation 14.1 % (11.7-14.2); RDW Standard Deviation 51.2 fL (35.1-46.3); Red Blood Cell Count 2.19 M/mm3 (3.80-5.20); White Blood Cell Count 11.99 K/mm3 (4.00-11.30)
--- NOTE | 2023-12-26 05:29 | NUR ---
SHIFT SUMMARY POD 1 TOTAL HIP REVISION, S/P I&D R HIP x2. NO ACUTE CHANGES OVERNIGHT. VS WNL FOR PT, 2L O2 VIA NC TO MAINTAIN SAT >94%. LYDIA DRESSING C/D/I, SCANT DRAINAGE ON DRESSING. HEMOVAC IN PLACE, SANGUINEOUS DRAINGE, INSERTION SITE C/D/I. TOLERATING ORALS. STAND/PIVOT, 1 PERSON ASSIST TO BEDSIDE COMMODE. VOIDING INDEPENDENTLY, NO BM OVERNIGHT. PAIN MANAGED PER EMAR, PT REPORTS PAIN INCREASED FROM PRE-OP PAIN & NOT ABLE TO SLEEP WELL OVERNIGHT. ANTICIPATED DISCHARGE c HH. CALL LIGHT WITHIN REACH, BED IN LOWEST POSITION, WILL REPORT TO DAY RN.
[2023-12-26 06:06] LABS: Anion Gap Unable to Calculate mmol/L (6-16); Blood Urea Nitrogen 13 mg/dL (8-24); Bun/Creatinine Ratio 19.9 (12.0-20.0); CO2, Blood 30 mmol/L (21-32); Calcium, Blood 8.4 mg/dL (8.5-10.1); Chloride, Blood 108 mmol/L (98-108); Creatinine, Blood 0.65 mg/dL (0.40-1.00); Glomerular Filtration Rate 109 (60-); Glucose, Blood 107 mg/dL (70-99); Potassium, Blood 3.9 mmol/L (3.5-5.5); Sodium, Blood 137 mmol/L (136-145)
[2023-12-26 07:08] VITALS: BP 118/82
--- NOTE | 2023-12-26 14:26 | NUR ---
SHIFT SUMMARY ON 12/20/23 WAS WRONG DOCUMENTATION AND NOT FROM THIS PT. WAS NOT ABLE TO REMOVE NOTE.
--- NOTE | 2023-12-26 14:28 | NUR ---
LATE SHIFT SUMMARY REFERRING TO 12/20/23. PT WAS AOX4 AND COOPERATIVE OF CARE. TREATED FOR PAIN PER EMAR RELATED TO R HIP. BANDAGE DID NOT SATURATE AND DID NOT NEED CHANGED. PT CALLED APPROPRIATELY AND WAS PLEASANT WITH CARE.
[2023-12-26 15:55] VITALS: BP 114/74
--- NOTE | 2023-12-26 17:15 | NUR ---
SHIFT SUMMARY: POD 1 RIGHT TOTAL HIP REVISION PATIENT IS A&OX4. VS ARE WNL AND IS ON RA WHILE AWAKE BUT ON 2-3L NC WHEN ASLEEP DUE TO PATIENT REFUSING CPAP AND HAS >90% OXYGEN SATS. PATIENT STATES "MANAGEABLE PAIN FOR ME IS A 7/10 BUT WHEN IT HITS AN 8 ALMOST 9 IS WHEN I NEED PAIN MEDS". PAIN IS MAINTAINS PATIENTS PAIN TO A 7/10 PAIN WITH PO PERCOCET AND IV DILAUDID WELL ICE PACK PLACED ON THE RIGHT HIP. PATIENT HAS A LYDIA DRESSING ON THE RIGHT HIP INCISION THAT IS C/D/I AND SHE ALSO HAS HER HEMOVAC COMPRESSED WITH SMALL AMOUNT OF RED OUTPUT WITH THAT [facility] TEGADERM DRESSING C/D/I WELL. PATIENT IS A SBA WITH FWW AND GAIT BELT WHEN AMBULATING WITHIN THE ROOM BUT IS INDEP. FROM THE BED TO BSC. PATIENT IS TOLERATING PO INTAKE AND IS VOIDING. PATIENT CALLS APPROPRIATELY. SHE IS CURRENTLY LAYING IN BED WITH CALL LIGHT IN REACH. THE PLAN IS TO DISCHARGE HOME WITH HOME HEALTH TOMORROW.
[2023-12-26 19:59] VITALS: BP 114/68
[2023-12-27 02:15] VITALS: BP 133/78
--- NOTE | 2023-12-27 04:42 | NUR ---
SHIFT SUMMARY POD2 R TOTAL HIP REVISION PT RESTED IN BED DURING THE NIGHT. GOT UP AND WALKED TWICE DURING THE NIGHT. PAIN MANAGED PER EMAR. HEMOVAC HAS VERY LITTLE OUTPUT. TOLERATING PO INTAKE, VOIDING WELL. PT TO D/C WITH HH TODAY. PICC STAYING IN FOR IV ABX AT HOME. NO OTHER CONCERNS AT THIS TIME. CALL LIGHT WITHIN REACH.
[2023-12-27 06:16] LABS: BASOPHILS ABSOLUTE AUTO 0.07 K/mm3 (0.00-0.23); BASOPHILS PERCENT AUTO 1 % (0-2); EOSINOPHILS ABSOLUTE AUTO 0.62 K/mm3 (0.00-0.68); EOSINOPHILS PERCENT AUTO 6 % (0-6); Hematocrit 23.6 % (33.0-51.0); Hemoglobin 7.5 g/dL (11.5-16.0); IMMATURE GRAN ABSOLUTE AUTO 0.45 K/mm3 (0.00-0.10); IMMATURE GRAN PERCENT AUTO 4 % (0-1); LYMPHOCYTES ABSOLUTE AUTO 2.38 K/mm3 (0.84-5.20); LYMPHOCYTES PERCENT AUTO 23 % (21-46); MONOCYTES ABSOLUTE AUTO 0.91 K/mm3 (0.16-1.47); MONOCYTES PERCENT AUTO 9 % (4-13); Mean Corpuscular HGB 31.9 pg (26.0-34.0); Mean Corpuscular HGB Conc 31.8 g/dL (31.5-36.5); Mean Corpuscular Volume 100 fL (80-100); Mean Platelet Volume 9.5 fL (9.1-12.4); NEUTROPHILS ABSOLUTE AUTO 5.89 K/mm3 (1.96-9.15); NEUTROPHILS PERCENT AUTO 57 % (41-73); Platelet Count 467 K/mm3 (150-400); RDW Coefficient Variation 14.1 % (11.7-14.2); RDW Standard Deviation 51.6 fL (35.1-46.3); Red Blood Cell Count 2.35 M/mm3 (3.80-5.20); White Blood Cell Count 10.32 K/mm3 (4.00-11.30)
[2023-12-27 06:46] LABS: Bun/Creatinine Ratio 19.6 (12.0-20.0); Calcium, Blood 8.9 mg/dL (8.5-10.1); Creatinine, Blood 0.72 mg/dL (0.40-1.00); Potassium, Blood 3.8 mmol/L (3.5-5.5)
[2023-12-27 07:29] VITALS: BP 109/69
[2023-12-27] MEDS ORDERED: ALDACTONE100 MG PO (08:56)
[2023-12-27] MEDS ORDERED: CEFAZOLIN2 GM/50 M3 IV (12:54)
[2023-12-27] MEDS ORDERED: VISBIOME 112.51 EACH PO (12:55)
--- NOTE | 2023-12-27 14:20 | NUR ---
DISCHARGE SUMMARY POD2 R HIP I&D #3 WITH 2 PIECE REVISION OF GRE[place], A/OX4, VSS, TOLERATING PO, AMBULATING IN HER ROOM INDPENDENTLY, HEMOVAC HAD SIGNIFICANT INCREASE IN OUTPUT OVER NIGHT BUT PER MD NOTES IT HAD POPPED OFF YESTERDAY AND SOME OUTPUT WAS LOST IN THE BEDDING, DISCUSSED THIS WITH ORTHO WHO RECOMMENDED LEAVING THE DRAIN IN PLACE AND HAVING HER FOLLOW UP WITH SURGEON NEXT WEEK, LYDIA DRESSING TO R HIP C/D/I, SWELLING NOTED IN R THIGH WHICH HAS BEEN CONSISTENTLY PRESENT PER PATIENT. DISCUSSED DISCHARGE INSTRUCTIONS INCLUDING HOME CARE, MEDICATIONS, AND FOLLOW UP APPOINTMENTS. DISCUSSED DRESSING CHANGES AND PROVIDED SUPPLIES AND DIRECTION. PICC LINE LOCKED AND CAP WAS PLACED IN IT, PROVIDED PATEINT WITH ADDITIONAL CAPS AND DISCUSSED HOME CARRE OF HER PICC LINE. PT GIVEN HER PERCOCET PRESCRIPTION WHICH HAD BEEN PREVIOUSLY LOCKED UP WELL A NEW SCRIPT FROM MEDICAL MD. PT ESCORTED OUT VIA WC TO PRIVATE AUTO TO GO HOME.
== END 2023-12-27 15:01 | disposition home health service (06) | DRG 467 ==
LOC: SURS 23:56 → MEDS 23:56 → SURS 12-18 10:16 → MEDS 12-18 10:16 → SURS 12-18 10:16 → MEDS 12-18 10:17 → SURS 12-22 14:43
PROVIDERS: Anesthesiology; Internal Medicine; ADMIT Orthopaedic Surgery
PROC: 0JCL0ZZ Extirpation of Matter from Right Upper Leg Subcutaneous Tissue and Fascia, Open Approach (ICD-10-PCS; 2023-12-18)
PROC: 3E0U029 Introduction of Other Anti-infective into Joints, Open Approach (ICD-10-PCS; 2023-12-22)
PROC: 0SPR0JZ Removal of Synthetic Substitute from Right Hip Joint, Femoral Surface, Open Approach (ICD-10-PCS; principal; 2023-12-22 14:00)
PROC: 0SRR03Z Replacement of Right Hip Joint, Femoral Surface with Ceramic Synthetic Substitute, Open Approach (ICD-10-PCS; 2023-12-22 14:00)
PROC: 0SP909Z Removal of Liner from Right Hip Joint, Open Approach (ICD-10-PCS; 2023-12-25)
PROC: 0SRR03Z Replacement of Right Hip Joint, Femoral Surface with Ceramic Synthetic Substitute, Open Approach (ICD-10-PCS; 2023-12-25)
PROC: 0SPR0JZ Removal of Synthetic Substitute from Right Hip Joint, Femoral Surface, Open Approach (ICD-10-PCS; 2023-12-25)
PROC: 0SUA09Z Supplement Right Hip Joint, Acetabular Surface with Liner, Open Approach (ICD-10-PCS; 2023-12-25)
PROC: 3E0U029 Introduction of Other Anti-infective into Joints, Open Approach (ICD-10-PCS; 2023-12-25)
DX: T84.51XA Infection and inflammatory reaction due to internal right hip prosthesis, initial encounter (principal); L76.32 Postprocedural hematoma of skin and subcutaneous tissue following other procedure; M00.051 Staphylococcal arthritis, right hip; Y83.8 Other surgical procedures as the cause of abnormal reaction of the patient, or of later complication, without mention of misadventure at the time of the procedure; G47.33 Obstructive sleep apnea (adult) (pediatric); M79.7 Fibromyalgia; B95.61 Methicillin susceptible Staphylococcus aureus infection as the cause of diseases classified elsewhere; G89.29 Other chronic pain; E66.9 Obesity, unspecified; G43.909 Migraine, unspecified, not intractable, without status migrainosus; M19.90 Unspecified osteoarthritis, unspecified site; J45.909 Unspecified asthma, uncomplicated; D64.9 Anemia, unspecified; K59.00 Constipation, unspecified; Z96.653 Presence of artificial knee joint, bilateral; Z88.2 Allergy status to sulfonamides; Z88.0 Allergy status to penicillin; Z88.1 Allergy status to other antibiotic agents; Z88.8 Allergy status to other drugs, medicaments and biological substances; Z79.1 Long term (current) use of non-steroidal anti-inflammatories (NSAID); Z79.82 Long term (current) use of aspirin; Z68.36 Body mass index [BMI] 36.0-36.9, adult
CPT/HCPCS: 36415; 73502; 80048; 82728; 83540; 83550; 85014; 85018; 85025; 85027; 85651; 86140; 86850; 86900; 86901; 87070; 87071; 87075; 87077; 87147; 87186; 87205; 88305; 94760; 94762; 96361; 96374; 97110; 97162; A9270; G0378; G0379; J0171; J0461; J0690; J0696; J0735; J1100; J1170; J1885; J2060; J2250; J2371; J2405; J2704; J2795; J3010; J3370; J7050; J7120

== ENCOUNTER → 2023-12-31 | Outpatient (CLI) | payer MEDICARE, OTHER ==
[~2023-12-31] MED LIST changes: +CEFAZOLIN2 GM/50 M3 IV; +VISBIOME 112.51 EACH PO
[2023-12-31 11:45] LABS: BASOPHILS ABSOLUTE AUTO 0.11 K/mm3 (0.00-0.23); BASOPHILS PERCENT AUTO 1 % (0-2); EOSINOPHILS ABSOLUTE AUTO 0.56 K/mm3 (0.00-0.68); EOSINOPHILS PERCENT AUTO 6 % (0-6); Hematocrit 24.6 % (33.0-51.0); Hemoglobin 7.6 g/dL (11.5-16.0); IMMATURE GRAN ABSOLUTE AUTO 0.13 K/mm3 (0.00-0.10); IMMATURE GRAN PERCENT AUTO 1 % (0-1); LYMPHOCYTES ABSOLUTE AUTO 1.81 K/mm3 (0.84-5.20); LYMPHOCYTES PERCENT AUTO 19 % (21-46); MONOCYTES ABSOLUTE AUTO 0.59 K/mm3 (0.16-1.47); MONOCYTES PERCENT AUTO 6 % (4-13); Mean Corpuscular HGB 31.3 pg (26.0-34.0); Mean Corpuscular HGB Conc 30.9 g/dL (31.5-36.5); Mean Corpuscular Volume 101 fL (80-100); Mean Platelet Volume 9.4 fL (9.1-12.4); NEUTROPHILS ABSOLUTE AUTO 6.16 K/mm3 (1.96-9.15); NEUTROPHILS PERCENT AUTO 66 % (41-73); Platelet Count 544 K/mm3 (150-400); RDW Coefficient Variation 14.2 % (11.7-14.2); RDW Standard Deviation 52.1 fL (35.1-46.3); Red Blood Cell Count 2.43 M/mm3 (3.80-5.20); White Blood Cell Count 9.36 K/mm3 (4.00-11.30)
[2024-01-01 08:11] LABS: A/G RATIO 1.3 (1.2-2.2); ALKALINE PHOSPHATASE, S 82 IU/L (44-121); ALT (SGPT) 5 IU/L (0-32); AST (SGOT) 14 IU/L (0-40); BILIRUBIN, TOTAL <0.2 mg/dL (0.0-1.2); BUN 10 mg/dL (6-24); BUN/CREATININE RATIO 14 (9-23); CALCIUM, SERUM 8.3 mg/dL (8.7-10.2); CARBON DIOXIDE, TOTAL 24 mmol/L (20-29); CHLORIDE, SERUM 105 mmol/L (96-106); CREATININE, SERUM 0.72 mg/dL (0.57-1.00); GLOBULIN, TOTAL 2.3 g/dL (1.5-4.5); GLUCOSE, SERUM 98 mg/dL (70-99); POTASSIUM, SERUM 4.5 mmol/L (3.5-5.2); PROTEIN, TOTAL, SERUM 5.4 g/dL (6.0-8.5); SODIUM, SERUM 140 mmol/L (134-144)
== END | disposition home or self-care (01) ==
LOC: LAB 09:45 → LAB SHORT 09:45
PROVIDERS: Student in an Organized Health Care Education/Training Program
DX: T84.51XA Infection and inflammatory reaction due to internal right hip prosthesis, initial encounter (principal); B95.61 Methicillin susceptible Staphylococcus aureus infection as the cause of diseases classified elsewhere
CPT/HCPCS: 80053; 85025

== ENCOUNTER → 2024-01-07 | Outpatient (CLI) | payer MEDICARE, OTHER ==
[2024-01-07 11:37] LABS: BASOPHILS ABSOLUTE AUTO 0.15 K/mm3 (0.00-0.23); BASOPHILS PERCENT AUTO 2 % (0-2); EOSINOPHILS PERCENT AUTO 5 % (0-6); Hematocrit 31.3 % (33.0-51.0); Hemoglobin 9.5 g/dL (11.5-16.0); IMMATURE GRAN ABSOLUTE AUTO 0.07 K/mm3 (0.00-0.10); IMMATURE GRAN PERCENT AUTO 1 % (0-1); LYMPHOCYTES ABSOLUTE AUTO 1.89 K/mm3 (0.84-5.20); LYMPHOCYTES PERCENT AUTO 19 % (21-46); MONOCYTES ABSOLUTE AUTO 0.95 K/mm3 (0.16-1.47); MONOCYTES PERCENT AUTO 9 % (4-13); Mean Corpuscular HGB 29.1 pg (26.0-34.0); Mean Corpuscular HGB Conc 30.4 g/dL (31.5-36.5); Mean Corpuscular Volume 96 fL (80-100); Mean Platelet Volume 9.6 fL (9.1-12.4); NEUTROPHILS ABSOLUTE AUTO 6.57 K/mm3 (1.96-9.15); NEUTROPHILS PERCENT AUTO 65 % (41-73); Platelet Count 519 K/mm3 (150-400); RDW Coefficient Variation 14.1 % (11.7-14.2); RDW Standard Deviation 49.9 fL (35.1-46.3); Red Blood Cell Count 3.26 M/mm3 (3.80-5.20); White Blood Cell Count 10.13 K/mm3 (4.00-11.30)
[2024-01-07 11:56] LABS: Albumin, Blood 3.5 g/dL (3.4-5.0); Bilirubin, Total 0.4 mg/dL (0.1-1.0); Bun/Creatinine Ratio 19.1 (12.0-20.0); Calcium, Blood 9.3 mg/dL (8.5-10.1); Creatinine, Blood 0.84 mg/dL (0.40-1.00); Globulin, Blood 3.4 g/dL (2.2-4.0); Potassium, Blood 4.3 mmol/L (3.5-5.5); Total Protein, Blood 6.9 g/dL (6.4-8.2)
== END ==
LOC: LAB SHORT 09:40
PROVIDERS: Student in an Organized Health Care Education/Training Program
DX: T84.51XA Infection and inflammatory reaction due to internal right hip prosthesis, initial encounter (principal); B95.61 Methicillin susceptible Staphylococcus aureus infection as the cause of diseases classified elsewhere
CPT/HCPCS: 80053; 85025

== ENCOUNTER 2025-11-16 17:12 | Emergency (ER) | payer MEDICARE, OTHER ==
[~2025-11-16] VITALS: Ht 167.6 cm; Wt 99.8 kg
[2025-11-16 17:25] VITALS: BP 143/108
[2025-11-16] MEDS ORDERED: HYDROcodone 5-APAP 325 TAB PO ONE (17:30)
[2025-11-16] MEDS ORDERED: Percocet 5-3251 EACH PO (18:14)
== END 2025-11-16 18:58 | disposition home or self-care (01) ==
LOC: ER 17:12
DX: S82.61XA Displaced fracture of lateral malleolus of right fibula, initial encounter for closed fracture (principal); Z88.2 Allergy status to sulfonamides; Z91.041 Radiographic dye allergy status; Z79.899 Other long term (current) drug therapy; F17.290 Nicotine dependence, other tobacco product, uncomplicated; X50.1XXA Overexertion from prolonged static or awkward postures, initial encounter
CPT/HCPCS: 29515; 73610; 99283-25; A9270